=== PATIENT | female | born 1970 | race Caucasian/White ===

== ENCOUNTER 2016-11-26 14:30 | Emergency (ER) | payer BC ==
[2016-11-26] MEDS ORDERED: ASPIRIN 81 MG CHEW PO STA (15:05)
[2016-11-26] MEDS ORDERED: ORPHENADRINE 30 MG/ML 2 ML VIAL IVP STA (15:05)
--- NOTE | 2016-11-26 15:14 | ED ---
Chest Pain HPI - General Chief Complaint: Chest Pain Stated Complaint: Chest Pain/sent by PCP Abn EKG Time Seen by Provider: 11/26/16 14:57 Source: patient, RN notes reviewed Mode of arrival: ambulatory Limitations: no limitations - History of Present Illness Initial Comments: 46-year-old female presents to the emergency room chief complaint of right- sided neck pain. Patient states her last years so she thought that this right arm has been sore since it feels like it needs to be stress. Patient states on off for last 2 weeks. This neck pain that radiates up her neck that feels like she just needs to stretch out patient is discharged from it causes pain. She her shoulder in a way it causes pain. Patient states she had that this morning but it did radiate into the chest when she moves her arm so she was concerned. Patient states that she does smoke. Patient states she went to her doctor that an EKG they were concerned due to female and a smoker. The patient states that she believes is most skeletal but she just wanted to make sure. Patient states there is no nausea no vomiting no shortness of breath with this. Patient states movement makes the pain worse. Patient denies any recent fever, chills, shortness of breath, back pain, abdominal pain, nausea vomiting, numbness or tingling, dysuria or hematuria, constipation or diarrhea, headaches or visual changes, or any other current symptoms. - Related Data Home Medications Medication Instructions Recorded Confirmed Acetaminophen Tab [Tylenol Tab] 1,000 mg PO Q6HR PRN 11/26/16 11/26/16 Albuterol Inhaler [Ventolin Hfa 1 - 2 puff INHALATION RT-Q6H PRN 11/26/16 Inhaler] Beclomethasone Dipropionate [Qvar 2 puff INHALATION RT-BID 11/26/16 11/26/16 80 mcg] Varenicline [Chantix] 0.5 mg PO BID 11/26/16 11/26/16 Allergies Allergy/AdvReac Type Severity Reaction Status Date / Time ciprofloxacin [From Cipro] Allergy Rash/Hives Verified 11/26/16 15:03 Review of Systems ROS Statement: Those systems with pertinent positive or pertinent negative responses have been documented in the HPI. ROS Other: All systems not noted in ROS Statement are negative. EKG Findings - EKG Comments: EKG Findings:: normal sinus rhythm 75 bpm, normal axis, no atopy, no S-T depressions or elevations, Past Medical History Past Medical History: Asthma History of Any Multi-Drug Resistant Organisms: None Reported Past Surgical History: Hernia Repair Additional Past Surgical History / Comment(s): eye surgery Past Psychological History: No Psychological Hx Reported Smoking Status: Current every day smoker Past Alcohol Use History: Occasional Past Drug Use History: None Reported General Exam - General Exam Comments Initial Comments: General: The patient is awake and alert, in no distress, and does not appear acutely ill. Eye: Pupils are equal, round and reactive to light, extra-ocular movements are intact; there is normal conjunctiva bilaterally. No signs of icterus. Ears, nose, mouth and throat: There are moist mucous membranes. Neck: The neck is supple, there is no tenderness to palpation along the trapezius. Patient has pain with leftward bending of the neck. The patient's discomfort. Cardiovascular: There is a regular rate and rhythm. No murmur, rub or gallop is appreciated. Respiratory: Lungs are clear to auscultation, respirations are non-labored, breath sounds are equal. No wheezes, stridor, rales, or rhonchi. Gastrointestinal: Soft, non-distended, non-tender abdomen without masses or organomegaly noted. There is no rebound or guarding present. No CVA tenderness. Bowel sounds are unremarkable. Back: There is no tenderness to palpation in the midline. There is no obvious deformity. No rashes noted. Musculoskeletal: Normal ROM, no tenderness, There is no pedal edema. There is no calf tenderness or swelling. Sensation intact. Pulses equal bilaterally 2+. Neurological: CN II-XII intact, There are no obvious motor or sensory deficits. Coordination appears grossly intact. Speech is normal. Skin: Skin is warm and dry and no rashes or lesions are noted. Psychiatric: Cooperative, appropriate mood & affect, normal judgment. Limitations: no limitations Course Vital Signs 11/26/16 11/26/16 14:38 15:39 Temperature 97.7 F Pulse Rate 71 63 Respiratory 17 20 Rate Blood Pressure 139/78 135/81 O2 Sat by Pulse 100 100 Oximetry Chest Pain MDM - MDM 46-year-old female presents with a chief complaint of right-sided neck pain. This didn't radiate into the chest. Patient was worked up cardiac patient has negative labs and EKG. At this time x-rays are reviewed that does show some degeneration in the neck which makes of the patient's neck pain the arm pain and the radiation down the arm the fact that sometimes has numbness and tingling in her arm on and off for a year or so. At this time the patient was offered admission for continued cardiac workup. We discussed that we cannot rule out if she is having an acute heart attack without additional workup. We discussed that she does have some risk factors. We discussed that if she goes home there is a chance that she could be having an FL and it could lead to and other causes. The patient also was informed of the x-ray. At this time the patient was offered admission and the patient does not want to stay in the hospital. She states that she understands risks of going home but she like to go home. At this time we will respect the patient's wishes. We discussed follow-up in the morning with her doctor for cardiology patient is in agreement. We discussed return parameters to the hospital. She states that she does understand. All questions were answered. She will be discharged. Disposition Clinical Impression: Atypical chest pain, Cervical strain Disposition: HOME SELF-CARE Condition: Stable Instructions: Chest Pain (ED), Cervical Strain (ED) Additional Instructions: Please use medication as discussed. Please follow up with family doctor if symptoms have not improved over the next two days. Please return to the emergency room if your symptoms increase or worsen or for any other concerns. Referrals: Janny Lara MD [Primary Care Provider] - 1-2 days Time of Disposition: 16:41
[2016-11-26 15:27] LABS: Partial Thromboplastin Time 24.6 sec (22.0-30.0); Prothrombin Time 10.1 sec (9.0-12.0)
--- NOTE | 2016-11-26 15:35 | XR ---
EXAMINATION TYPE: XR chest 2V DATE OF EXAM: 11/26/2016 3:31 PM COMPARISON: Chest x-ray November 01, 2015. HISTORY: Chest pain per order. TECHNIQUE: Frontal and lateral views of the chest are obtained. FINDINGS: There is no focal air space opacity, pleural effusion, or pneumothorax seen. The cardiac silhouette size is within normal limits. The osseous structures are intact. IMPRESSION: No acute process. No significant change from prior.
--- NOTE | 2016-11-26 15:37 | XR ---
EXAMINATION TYPE: XR cervical spine comp DATE OF EXAM: 11/26/2016 3:31 PM TECHNIQUE: Frontal, lateral, oblique, and open mouth view of the cervical spine are obtained. HISTORY: Neck pain COMPARISON: None FINDINGS: The cervical spine is visualized in its entirety from C1 thru the top of T1 level, it is s traightened in alignment without evidence of acute fracture or dislocation. The pre-vertebral soft t issue appears within normal limits. The C1-C2 articulation is within normal limits on the open mouth view. Vertebral body heights are maintained. There is mild to moderate disc space narrowing and spu rring at C5-C6 and C6-C7 levels. The oblique images are within normal limits. Overlying soft tissue i s unremarkable. IMPRESSION: Straightening of cervical spine with mild to moderate degenerative changes C5-C6 and C6-C 7 level noted.
[2016-11-26 15:39] LABS: ALT 33 U/L (9-52); AST 24 U/L (14-36); Alkaline Phosphatase 66 U/L (38-126); Anion Gap 13 mmol/L; Blood Urea Nitrogen 6 mg/dL (7-17); Calcium 9.4 mg/dL (8.4-10.2); Carbon Dioxide 24 mmol/L (22-30); Chloride 103 mmol/L (98-107); Glucose 83 mg/dL (74-99); Magnesium 1.9 mg/dL (1.6-2.3); Non-African American GFR(MDRD) >60 (>60 ml/min/1.73 sqM); Potassium 3.9 mmol/L (3.5-5.1); Sodium 140 mmol/L (137-145); Total Bilirubin 0.6 mg/dL (0.2-1.3); Total Protein 7.7 g/dL (6.3-8.2)
[2016-11-26 15:40] LABS: Basophils % (A) 1 %; CH 30.2; CHCM 33.3; Creatine Kinase 63 U/L (30-135); Eosinophils # (A) 0.1 k/uL (0-0.7); Eosinophils % (A) 1 %; HCT 43.7 % (34.0-46.0); HGB 14.6 gm/dL (11.4-16.0); Luc # (Auto) 0.12; Luc % (Auto) 2; Lymphocytes # (A) 2.1 k/uL (1.0-4.8); Lymphocytes % (A) 28 %; MCH 30.4 pg (25.0-35.0); MCHC 33.3 g/dL (31.0-37.0); MCV 91.1 fL (80.0-100.0); Mean Platelet Volume 6.7; Monocytes # (A) 0.4 k/uL (0-1.0); Monocytes % (A) 5 %; Neutrophils % (A) 65 %; RDW 12.6 % (11.5-15.5); WBC 7.7 k/uL (3.8-10.6); WBC (Perox) 7.66
[2016-11-26 15:42] VITALS: PULSE 63; RESP 20
[2016-11-26 15:53] LABS: Creatine Kinase MB <0.2 ng/mL (0.0-2.4); Troponin I <0.012 ng/mL (0.000-0.034)
[2016-11-26 17:04] VITALS: BP 118/69; TEMP 98
== END 2016-11-26 17:16 | disposition home or self-care (01) ==
LOC: EC 14:30
DX: R07.89 Other chest pain (principal); S16.1XXA Strain of muscle, fascia and tendon at neck level, initial encounter; M50.323 Other cervical disc degeneration at C6-C7 level; X58.XXXA Exposure to other specified factors, initial encounter; J45.909 Unspecified asthma, uncomplicated; F17.200 Nicotine dependence, unspecified, uncomplicated; Z79.51 Long term (current) use of inhaled steroids; Z79.899 Other long term (current) drug therapy; Z88.1 Allergy status to other antibiotic agents
CPT/HCPCS: 36415; 93005; 80053; 82550; 82553; 83735; 84484; 85025; 85610; 85730; 71020; 72050; 99285; 96374; J2360

== ENCOUNTER → 2017-02-05 | Outpatient (CLI) | payer BC ==
--- NOTE | 2017-02-05 10:32 | XR ---
EXAMINATION TYPE: XR cervical spine comp DATE OF EXAM: 02/05/2017 10:10 AM CLINICAL HISTORY: pain COMPARISON: NONE TECHNIQUE: Frontal, lateral, oblique, swimmers, and open mouth view of the cervical spine are obtaine d. FINDINGS: The cervical spine is visualized in its entirety from C1 thru the top of T1 level. It is s atisfactory in alignment without evidence of acute fracture or dislocation. The pre-vertebral soft t issue appears within normal limits. Mild degenerative disc space narrowing as well as ventral and keith matthew spondylosis at C5-6 and C6-7. The C1-C2 articulation is unremarkable on the open mouth view. The oblique images are within normal limits. IMPRESSION: No acute fracture or dislocation is seen in the cervical spine.ICD 10 NO FRACTURE, INITI AL EVALUATION
== END | disposition home or self-care (01) ==
LOC: RADXRMAIN 09:41
PROVIDERS: ATTEND Family Medicine
DX: M54.12 Radiculopathy, cervical region (principal)
CPT/HCPCS: 72050

== ENCOUNTER → 2017-02-19 | Outpatient (CLI) | payer BC ==
--- NOTE | 2017-02-19 09:31 | MR ---
EXAMINATION TYPE: MR cervical spine wo con DATE OF EXAM: 02/19/2017 8:12 AM COMPARISON: X-ray 02/05/2017 HISTORY: radiculopathy csp, neck, shoulder and arm pain TECHNIQUE: Multiplanar, multisequence images of the cervical spine were acquired. C2-C3: No evidence for degenerative disc disease. No disc bulge/herniation or protrusion. No Canal stenosis. Foramina are patent bilaterally. C3-C4: Mild degenerative disc disease. There is broad-based central left paracentral disc bulging wit h mild effacement of thecal sac. No spinal cord contact. No foraminal encroachment. C4-C5: Mild degenerative disc disease with left paracentral focal broad-based disc protrusion. Encroa ches upon the anterior margin the spinal cord but no contact. Neural foramina remain patent. C5-C6: Moderate degenerative disc disease with posterior disc protrusion capped by spur with uncovert ebral joint hypertrophy. Mild left foraminal encroachment secondary to greater uncovertebral joint hy pertrophy. C6-C7: Central and left paracentral disc bulging with mild effacement of thecal sac but no spinal cor d contact. Uncovertebral joint hypertrophy noted bilaterally better on the left with mild left forami nal encroachment. C7-T1: No evidence for degenerative disc disease. No disc bulge/herniation or protrusion. No Canal stenosis. Foramina are patent bilaterally. Cervical segments are intact. There is normal alignment. Cervical spinal cord is of normal signal. Craniovertebral junction relationships are within normal limits. IMPRESSION: Multilevel degenerative disc disease with multilevel disc bulging or protrusion as discussed above. E ffacement of thecal sac seen at levels C3-C7
== END | disposition home or self-care (01) ==
LOC: RADMRIMAIN 07:41
PROVIDERS: ATTEND Family Medicine
DX: M50.11 Cervical disc disorder with radiculopathy, high cervical region (principal)
CPT/HCPCS: 72141

== ENCOUNTER → 2017-03-26 | Outpatient (CLI) | payer BC ==
--- NOTE | 2017-03-26 15:24 | US ---
EXAMINATION TYPE: US transvaginal DATE OF EXAM: 03/26/2017 COMPARISON: NONE CLINICAL HISTORY: N93.8 Dysfunctional Uterine Bleeding. DUB, Tubal ligation in 2004 TECHNIQUE: Transvaginal (TV) Date of LMP: 03/13/2017, EXAM MEASUREMENTS: Uterus: 8.8 x 5.5 x 4.7 cm Endometrial Stripe: 0.6 cm Right Ovary: 2.6 x 1.5 x 1.6 cm Left Ovary: 4.0 x 2.9 x 2.5 cm 1. Uterus: Anteverted Heterogenous. Multiple hypoechoic lesions seen, largest measured. Right = 1.4 x 1.4 x 1.1 cm. Mid - 1.4 x 1.0 x 1.1 cm. Left = 1.5 x 1.7 x 1.5 cm 2. Endometrium: wnl 3. Right Ovary: follicle 4. Left Ovary: Cystic lesion - 2.8 x 2.4 x 2.2 cm Spectral, color and waveform doppler imaging shows good arterial and venous flow within the ovaries ; there is no evidence for ovarian torsion. 5. Bilateral Adnexa: Free fluid seen adjacent to right ovary 6. Posterior cul-de-sac: no free fluid Cervix- nabothian cysts, fluid seen in cervical canal IMPRESSION: 1. Multiple suspected leiomyomas. 2. Left ovarian cystic lesion. 3. Small amount of free fluid.
== END | disposition home or self-care (01) ==
LOC: RADUSWWP 14:08
PROVIDERS: ATTEND Obstetrics & Gynecology
DX: N83.202 Unspecified ovarian cyst, left side (principal); R93.8 Abnormal findings on diagnostic imaging of other specified body structures
CPT/HCPCS: 76830

== ENCOUNTER → 2017-05-14 | Outpatient (CLI) | payer BC ==
--- NOTE | 2017-05-14 08:38 | US ---
EXAMINATION TYPE: US thyroid st tissue head/neck DATE OF EXAM: 05/14/2017 COMPARISON: 05/08/2016 CLINICAL HISTORY: E04.1 SINGE THYROID NODULE. GLAND SIZE: Right Lobe: 5.0 x 1.8 x 1.8 cm Overall Parenchyma: homogenous Left Lobe: 3.7 x 1.7 x 1.2 cm Overall Parenchyma: homogeneous Isthmus Thickness: 0.2 cm NODULES RIGHT: # of nodules measured on right: 0 LEFT: # of nodules measured on left: 2 1. 0.6 X 0.4 x 0.5 cm complex cystic nodule at the posterior mid pole with well-defined margins. T his nodule is wider than tall and shows no intranodular vascularity. Prior size: 0.7 x 0.5 x 0.6 cm 2. 0.2cm small hypoechoic nodule at the anterior upper pole with poorly defined margins. This nodul e is wider than tall and shows intranodular vascularity. Prior size: not measured previously ISTHMUS: # of nodules measured in the isthmus: 0 Bilateral neck scanned, no evidence of lymphadenopathy. IMPRESSION: Essentially stable subcentimeter cystic lesions.
== END | disposition home or self-care (01) ==
LOC: RADUSWWP 08:10
PROVIDERS: ATTEND Family Medicine
DX: E04.2 Nontoxic multinodular goiter (principal)
CPT/HCPCS: 76536

== ENCOUNTER → 2017-08-01 | Outpatient (CLI) | payer BC ==
--- NOTE | 2017-08-05 08:02 | MM ---
Reason for exam: screening (asymptomatic). Last mammogram was performed 1 year and 1 month ago. History: Patient has history of other cancer at age 41. Took hormonal contraceptives for 19 years beginning at age 17. Physical Findings: A clinical breast exam by your physician is recommended on an annual basis and results should be correlated with mammographic findings. MG 3D Screening Mammo W/Cad Bilateral CC and MLO view(s) were taken. Prior study comparison: July 10, 2016, bilateral MG 3d screening mammo w/cad. July 05, 2015, bilateral MG screening mammo w CAD. April 11, 2014, bilateral MG screening mammo w CAD. There are scattered fibroglandular densities. No significant changes when compared with prior studies. ASSESSMENT: Negative, BI-RAD 1 RECOMMENDATION: Routine screening mammogram of both breasts in 1 year.
== END ==
LOC: RADMAMWWP 10:50
PROVIDERS: ATTEND Obstetrics & Gynecology
DX: Z12.31 Encounter for screening mammogram for malignant neoplasm of breast (principal)
CPT/HCPCS: 77063; G0202

== ENCOUNTER → 2017-12-17 | Outpatient (CLI) | payer BC ==
--- NOTE | 2017-12-17 11:59 | XR ---
EXAMINATION TYPE: XR knee complete LT DATE OF EXAM: 12/17/2017 CLINICAL HISTORY: pain TECHNIQUE: Three views of the left knee are obtained. COMPARISON: None. FINDINGS: There is no acute fracture/dislocation. The tri-compartment joint spaces appear within no rmal limits. The overlying soft tissue appears unremarkable. IMPRESSION: There is no acute fracture or dislocation ICD 10 NO FRACTURE, INITIAL EVALUATION
--- NOTE | 2017-12-17 12:00 | XR ---
EXAMINATION TYPE: XR Hip Complete LT DATE OF EXAM: 12/17/2017 CLINICAL HISTORY: Pain TECHNIQUE: AP and frogleg views of the left hip are obtained. COMPARISON: None. FINDINGS: There is no acute fracture/dislocation evident in the left hip. The joint space appears within normal limits. The overlying soft tissue appears unremarkable. IMPRESSION: There is no acute fracture or dislocation in the left hip.
== END | disposition home or self-care (01) ==
LOC: RADXRMAIN 11:29
PROVIDERS: ATTEND Family Medicine
DX: M25.552 Pain in left hip (principal); M25.562 Pain in left knee
CPT/HCPCS: 73502

== ENCOUNTER → 2018-01-09 | Outpatient (CLI) | payer BC ==
--- NOTE | 2018-01-09 11:03 | MR ---
EXAMINATION TYPE: MR hip LT wo con DATE OF EXAM: 01/09/2018 COMPARISON: NONE HISTORY: Other specified joint disorders, left hip Standard multiplanar, multisequence MRI departmental protocol Multiplanar, multisequence images of the left hip were acquired. FINDINGS: There is edema along the greater trochanter within the soft tissues as well as within the adjacent os seous structures. Nonspecific marrow edema often associated with trochanteric bursitis. Trace amount of fluid is seen within the joint space. There is marrow edema within the lateral margin of the acetabulum which may be reactive. Very mild hypertrophic change of the lateral margin of the acetabulum. Labrum is grossly intact. Joint space demonstrates mild concentric narrowing but no evidence of erosive change. Within the uterus there is a 1.6 cm area of low signal on the T2 axial image likely related to uterin e fibroid. Multiple additional less than 1 cm areas are seen within the myometrium suggesting fibroid . No free fluid within the pelvis. Fluid-filled structure with posterior to the uterus may be related to an adnexal cyst. IMPRESSION: 1. Correlate for trochanteric bursitis with edema in the lateral margin of the greater trochanter and adjacent soft tissues. Increased signal at the gluteus medius insertion is associated with tendinosi s. No full-thickness tear or tendinous retraction. 2. Multiple uterine fibroids are suspected and have been previously reported by ultrasound dated 2016.
== END ==
LOC: RADMRIMAIN 09:06
PROVIDERS: ATTEND Family Medicine
DX: M67.854 Other specified disorders of tendon, left hip (principal)

== ENCOUNTER → 2018-06-05 | Outpatient (CLI) | payer BC ==
--- NOTE | 2018-06-05 11:38 | FL ---
EXAMINATION TYPE: FL barium swallow w video DATE OF EXAM: 06/05/2018 MODIFIED SWALLOW / DEGLUTITION STUDY CLINICAL HISTORY: Dysphagia. Feels solid foods getting stuck. TECHNIQUE: Deglutition study is performed utilizing thin liquid barium, honey and nectar thick liqui d barium, barium thick applesauce, and barium coated cracker. A total of 56 seconds of fluoroscopic t bobby was utilized during procedure. Approximately 8 cine sequences are acquired. 0 spot images are eladia ed to PACS. COMPARISON: None. FINDINGS: The oral and pharyngeal phases show satisfactory initiation and propagation with all modali ties tested. Normal mastication is seen with solid modalities tested. There is no evidence of penet ration or aspiration with any modality tested. No significant pharyngeal residue was appreciated. IMPRESSION: Normal deglutition study. Please refer to speech therapist notes for further details if necessary.
== END | disposition home or self-care (01) ==
LOC: RADFLMAIN 10:51
PROVIDERS: ATTEND Family Medicine
DX: R13.10 Dysphagia, unspecified (principal)
CPT/HCPCS: 74230

== ENCOUNTER → 2018-07-17 | Outpatient (CLI) | payer BC ==
--- NOTE | 2018-07-19 19:10 | CT ---
EXAMINATION TYPE: CT soft tissue neck w con DATE OF EXAM: 07/17/2018 COMPARISON: None HISTORY: Dysphagia. CT DLP: 728 mGycm CONTRAST: Patient injected with 100ml mL of Isovue M300. TECHNIQUE: Axial images at 3 mm thick sections. Reconstructed images in the coronal plane and sagitt al plane are reviewed. FINDINGS: Limited CT sections are obtained the lung apices. The lung apices appear clear. CT neck: The torus tubarius and fossa of Rosenmuller are normal. Hose Tester spaces are normal. Ther e is made a retention cyst within the left maxillary sinus. Parotid glands appear normal and symmetrical. Submandibular glands, are normal. Parapharyngeal spac es are normal. No suspicious adenopathy is evident. Posterior left tongue has more fullness than on the right. This is narrowing the upper left hypophary nx. Direct visualization is recommended. This could be related to tongue positioning. Asymmetry raise s the possibility of abnormality at this level. Tongue density appears homogenous as visualized. Vocal cord level appear symmetrical. Thyroid as visualized is normal. There is a slight kyphosis in lower cervical spine. Degenerative disc changes are noted. IMPRESSIONS: 1. There is fullness within the posterior superior left tongue causing narrowing of the hypopharynx. Underlying mass is not excluded. Direct visualization of the posterior tongue is recommended.
== END | disposition home or self-care (01) ==
LOC: RADCTMAIN 18:17
PROVIDERS: ATTEND Otolaryngology
DX: J39.2 Other diseases of pharynx (principal)
CPT/HCPCS: 70491; Q9967

== ENCOUNTER → 2018-08-05 | Outpatient (CLI) | payer BC ==
--- NOTE | 2018-08-07 11:26 | MM ---
Reason for exam: screening (asymptomatic). Last mammogram was performed 1 year ago. History: Patient has history of other cancer at age 41. Took hormonal contraceptives for 19 years beginning at age 17. Physical Findings: A clinical breast exam by your physician is recommended on an annual basis and results should be correlated with mammographic findings. MG 3D Screening Mammo W/Cad Bilateral CC and MLO view(s) were taken. Prior study comparison: August 01, 2017, bilateral MG 3d screening mammo w/cad. July 10, 2016, bilateral MG 3d screening mammo w/cad. There are scattered fibroglandular densities. Asymmetry superior right breast is unchanged. No significant changes when compared with prior studies. ASSESSMENT: Negative, BI-RAD 1 RECOMMENDATION: Routine screening mammogram of both breasts in 1 year.
== END | disposition home or self-care (01) ==
LOC: RADMAMWWP 16:31
PROVIDERS: ATTEND Obstetrics & Gynecology
DX: Z12.31 Encounter for screening mammogram for malignant neoplasm of breast (principal)
CPT/HCPCS: 77063; 77067

== ENCOUNTER → 2019-03-26 | Outpatient (CLI) | payer BC ==
--- NOTE | 2019-03-26 08:49 | US ---
EXAMINATION TYPE: US thyroid st tissue head/neck DATE OF EXAM: 03/26/2019 COMPARISON: US 05/14/2017 CLINICAL HISTORY: E04.9 Nontoxic goiter unspecified. GLAND SIZE: Right Lobe: 5.1 x 1.4 x 1.4 cm Overall Parenchyma: homogenous Left Lobe: 4.1 x 0.9 x 1.4 cm Overall Parenchyma: homogeneous Isthmus Thickness: 0.3 cm NODULES RIGHT: # of nodules measured on right: 1 1. 0.4 X 0.2 x 0.4 cm hypoechoic cystic nodule at the upper pole with well-defined margins; . This nodule is wider than tall and shows no intranodular vascularity. Prior size: No previous LEFT: # of nodules measured on left: 2 1. 0.4 X 0.3 x 0.4 cm hypoechoic mixed nodule at the upper pole with well-defined margins; . This nodule is wider than tall and shows no intranodular vascularity. Prior size: No previous 2. 0.3 X 0.3 x 0.3 cm hypoechoic mixed nodule at the upper pole with well-defined margins; . This n odule is wider than tall and shows no intranodular vascularity. Prior size: 0.2 cm ISTHMUS: # of nodules measured in the isthmus: 0 Bilateral neck scanned, no evidence of lymphadenopathy. IMPRESSION: Subcentimeter thyroid nodules measure up to 4 mm. Surveillance is recommended as these are too small for fine-needle aspiration.
== END ==
LOC: RADUSWWP 08:14
PROVIDERS: ATTEND Family Medicine
DX: E04.2 Nontoxic multinodular goiter (principal)
CPT/HCPCS: 76536

== ENCOUNTER → 2019-09-08 | Outpatient (CLI) | payer BC ==
--- NOTE | 2019-09-09 11:00 | MM ---
Reason for exam: screening (asymptomatic). Last mammogram was performed 1 year and 1 month ago. History: Patient has history of other cancer at age 38. Took hormonal contraceptives for 19 years beginning at age 17. Physical Findings: A clinical breast exam by your physician is recommended on an annual basis and results should be correlated with mammographic findings. MG 3D Screening Mammo W/Cad Bilateral CC and MLO view(s) were taken. Prior study comparison: August 05, 2018, bilateral MG 3d screening mammo w/cad. August 01, 2017, bilateral MG 3d screening mammo w/cad. There are scattered fibroglandular densities. There is no discrete abnormality. No significant changes when compared with prior studies. ASSESSMENT: Negative, BI-RAD 1 RECOMMENDATION: Routine screening mammogram of both breasts in 1 year.
== END | disposition home or self-care (01) ==
LOC: RADMAMWWP 09:14
PROVIDERS: ATTEND Obstetrics & Gynecology
DX: Z12.31 Encounter for screening mammogram for malignant neoplasm of breast (principal)
CPT/HCPCS: 77063; 77067

== ENCOUNTER → 2020-05-31 | Outpatient (CLI) | payer BC ==
--- NOTE | 2020-05-31 13:44 | US ---
EXAMINATION TYPE: US thyroid st tissue head/neck DATE OF EXAM: 05/31/2020 COMPARISON: 03/26/2019 CLINICAL HISTORY: 49-year-old female E04.9 NONTOXIC GOITER. Thyroid nodules TECHNIQUE: Multiple sonographic images of the thyroid gland are obtained. FINDINGS: GLAND SIZE: Right Lobe: 4.3 x 1.8 x 1.9 cm Overall Parenchyma: homogenous Left Lobe: 4.0 x 1.4 x 1.4 cm Overall Parenchyma: homogeneous Isthmus Thickness: 0.2 cm NODULES RIGHT: # of nodules measured on right: 1 1. 0.5 X 0.3 x 0.4 cm hypoechoic cystic nodule at the lateral mid pole with well-defined margins. T his nodule is wider than tall and shows no intranodular vascularity. Prior size: 0.4 x 0.2 x 0.4 cm LEFT: # of nodules measured on left: 1 1. Nodule seen on previous exam not seen on today's study 2. 0.4 X 0.3 x 0.4 cm hypoechoic mixed nodule at the upper pole with well-defined margins. This nod ule is wider than tall and shows no intranodular vascularity. Prior size: 0.3 x 0.3 x 0.3 cm ISTHMUS: # of nodules measured in the isthmus: 0 Bilateral neck scanned, no evidence of lymphadenopathy. IMPRESSION: 5 mm cyst on the right and 4 mm mixed nodule on the left remain relatively unchanged compared to 2018. Additional follow-up as indicated. A previously seen 4 mm hypoechoic nodule on the left is no l onger identified.
== END | disposition home or self-care (01) ==
LOC: RADUSWWP 11:54
PROVIDERS: ATTEND Family Medicine
DX: E04.2 Nontoxic multinodular goiter (principal)
CPT/HCPCS: 76536

== ENCOUNTER 2020-09-01 06:06 | Day surgery (SDC) | payer BC ==
[2020-08-30 12:11] VITALS: BMI 27.1
[~2020-09-01 06:06] MED LIST: LACTATED RINGERS 1,000 ML IV SCH; LIDOCAINE 1% (10MG/ML) FOR IV START INTRADERMA PRN
[2020-09-01 06:56] VITALS: TEMP 97.9
[2020-09-01] MEDS ORDERED: LIDOCAINE 1% (10MG/ML) FOR IV START INTRADERMA ONE (07:00)
[2020-09-01] MEDS ORDERED: PROPOFOL 10 MG/ML 20 ML VIAL IV ONE (07:12)
[2020-09-01 07:31] VITALS: RESP 16
--- NOTE | 2020-09-01 07:31 | P.PCN ---
Date of Procedure: 09/01/20 Procedure(s) Performed: BRIEF HISTORY: Patient is a 49-year-old pleasant female scheduled for an elective colonoscopy as a part of screening for colorectal neoplasia. PROCEDURE PERFORMED: Colonoscopy snare polypectomy. PREOPERATIVE DIAGNOSIS: Screening for colon cancer. IV sedation per Anesthesia. PROCEDURE: After informed consent was obtained, the patient, was brought into the endoscopy unit. IV sedation was administered by Anesthesia under continuous monitoring. Digital rectal examination was normal. Initially the Olympus CF-160 flexible video colonoscope was then inserted in the rectum, gradually advanced into the cecum without any difficulty. Careful examination was performed as the scope was gradually being withdrawn. Ileocecal valve and the appendiceal orifice were visualized and appeared normal. Prep was excellent. The base of the cecum there was a flat 7-8 mm cecal polyp that was removed by snare polypectomy. Mucosa of the cecum, ascending colon, transverse colon, descending colon, sigmoid colon, and rectum appeared normal. Retroflexion was performed in the rectum and no lesions were seen. The patient tolerated the procedure well. IMPRESSION: 7-8 mm flat cecal polyp status post polypectomy Rest of the colon appeared normal. RECOMMENDATIONS: Findings of this examination were discussed with the patient as well as a family. She was advised to follow with the biopsy results. If the biopsy reveals adenoma she can have a repeat colonoscopy in 5 years.
[2020-09-01 07:46] VITALS: BP 112/65; PULSE 61
== END 2020-09-01 08:21 | disposition home or self-care (01) ==
LOC: ORWHC2ENDO 06:06
PROVIDERS: ATTEND Internal Medicine Gastroenterology
DX: Z12.11 Encounter for screening for malignant neoplasm of colon (principal); K63.5 Polyp of colon; Z87.891 Personal history of nicotine dependence; K20.0 Eosinophilic esophagitis; Z88.1 Allergy status to other antibiotic agents
CPT/HCPCS: 81025; 88305; 45385; J2704

== ENCOUNTER 2021-02-03 17:36 | Emergency (ER) | payer BC, OTHER ==
[2021-02-03 18:03] VITALS: BP 145/79; PULSE 75; RESP 18; TEMP 97.7
[2021-02-03] MEDS ORDERED: AMPICILLIN-SULBACTAM 3 GM in SODIUM CHLORIDE 0.9% 100 ML IVPB STA (18:42)
--- NOTE | 2021-02-03 18:43 | ED ---
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 Patient was bit by a cat while working yesterday. States that she did take two doses of augmentin yesterday. The redness and spread up her hand today so she presented here for further evalua tion. Patient states that there have been animal bite reports filed with the county through the veternary clinic. Patient states the cat was not vaccinated against rabies. Plan is to quarantine the cat. She reports that her tetanus was recently updated. She has had rabies vaccination in the past, titers 15 years ago were still reactive. She denies any fever, chills, vomiting, or significant pain with this. - Related Data Home Medications Medication Instructions Recorded Confirmed No Known Home Medications 08/30/20 08/30/20 Allergies Allergy/AdvReac Type Severity Reaction Status Date / Time ciprofloxacin [From Cipro] Allergy Rash/Hives Verified 02/03/21 18:03 Review of Systems ROS Statement: Those systems with pertinent positive or pertinent negative responses have been documented in the HPI. ROS Other: All systems not noted in ROS Statement are negative. Past Medical History Past Medical History: Asthma History of Any Multi-Drug Resistant Organisms: None Reported Past Surgical History: Hernia Repair Additional Past Surgical History / Comment(s): eye surgery Past Psychological History: No Psychological Hx Reported Smoking Status: Never smoker Past Alcohol Use History: Occasional Past Drug Use History: None Reported General Exam Limitations: no limitations General appearance: alert, in no apparent distress, other (Physical well- developed, well-nourished adult female patient in no acute distress. Vital signs upon presentation are temperature 97.7F, pulse 75, respirations 18, blood pressure 145/79, pulse ox 100% on room air.) Eye exam: Present: normal appearance, PERRL, EOMI. Absent: scleral icterus, conjunctival injection, periorbital swelling ENT exam: Present: normal exam, normal oropharynx, mucous membranes moist Respiratory exam: Present: normal lung sounds bilaterally. Absent: respiratory distress, wheezes, rales, rhonchi, stridor Cardiovascular Exam: Present: regular rate, normal rhythm, normal heart sounds. Absent: systolic murmur, diastolic murmur, rubs, gallop, clicks GI/Abdominal exam: Present: soft, normal bowel sounds. Absent: distended, tenderness, guarding, rebound, rigid Extremities exam: Present: full ROM, normal capillary refill, other (There is erythema and a mild soft tissue swelling noted to the left dorsal hand. There is puncture wounds and scratches noted as well. Skin is otherwise pink, warm, dry. Cap refill less than 3 seconds. Radial pulses 2+.). Absent: tenderness, pedal edema, joint swelling, calf tenderness Neurological exam: Present: alert, oriented X3, CN II-XII intact Psychiatric exam: Present: normal affect, normal mood Skin exam: Present: warm, dry, intact, normal color. Absent: rash Course Vital Signs 02/03/21 17:56 Temperature 97.7 F Pulse Rate 75 Respiratory 18 Rate Blood Pressure 145/79 O2 Sat by Pulse 100 Oximetry Medical Decision Making - Medical Decision Making 50-year-old female patient presents to the emergency department today for evaluation of Bite to the left hand. Physical examination did reveal soft tissue swelling and erythema over the dorsal aspect of the hand. No significant swelling. She reports no significant pain. She is afebrile. We did discuss the rabies prophylaxis, she declined stating this today due to 2 recent vaccinations including tetanus and covid. They do have contact with the cat's owners and it will be monitored. She understands if the cat develops symptoms of rabies she should present here right away for prophylactic treatment. We did give a dose of IV unasyn. She will be discharged to continue the augmentin. Return parameters were discussed in detail. She is instructed HER primary care physician for recheck in 1-2 days. She verbalizes understanding and agrees with this plan. My attending is Dr. Cardenas. Disposition Clinical Impression: Cat bite, Cellulitis Disposition: HOME SELF-CARE Condition: Good Instructions (If sedation given, give patient instructions): Animal Bite (ED), Cellulitis (ED) Additional Instructions: If Develops symptoms of rabies return immediately for postexposure prophylaxis protocol. Continue taking home Augmentin. Return immediately if you develop fever or vomiting. Follow-up with your primary care physician for recheck in 1- 2 days. Return for any other new, worsening, or concerning symptoms. Is patient prescribed a controlled substance at d/c from ED?: No Referrals: Janny Lara MD [Primary Care Provider] - 1-2 days Time of Disposition: 18:43
== END 2021-02-03 19:55 | disposition home or self-care (01) ==
LOC: EC 17:36
DX: S61.452A Open bite of left hand, initial encounter (principal); J45.909 Unspecified asthma, uncomplicated; W55.01XA Bitten by cat, initial encounter
CPT/HCPCS: 99283; 96365; J0295

== ENCOUNTER → 2021-02-21 | Outpatient (CLI) | payer BC ==
--- NOTE | 2021-02-22 13:19 | MM ---
Reason for exam: screening (asymptomatic). Last mammogram was performed 1 year and 5 months ago. History: Patient has history of other cancer at age 38. Took hormonal contraceptives for 19 years beginning at age 17. Physical Findings: A clinical breast exam by your physician is recommended on an annual basis and results should be correlated with mammographic findings. MG 3D Screening Mammo W/Cad Bilateral CC and MLO view(s) were taken. Prior study comparison: September 08, 2019, bilateral MG 3d screening mammo w/cad. August 05, 2018, bilateral MG 3d screening mammo w/cad. The breast tissue is heterogeneously dense. This may lower the sensitivity of mammography. Finding: There are indeterminate grouped/clustered calcifications in the upper outer quadrant, posterior position of the right breast on MLO 14/46. There is no discrete abnormality. New finding and increase in number of calcifications since September 08, 2019 and August 05, 2018. ASSESSMENT: Incomplete: need additional imaging evaluation, BI-RAD 0 RECOMMENDATION: Special view mammogram of the right breast. [facility] will attempt to contact patient to return for supplemental views.
== END | disposition home or self-care (01) ==
LOC: RADMAMWWP 08:05
PROVIDERS: ATTEND Obstetrics & Gynecology
DX: Z12.31 Encounter for screening mammogram for malignant neoplasm of breast (principal)
CPT/HCPCS: 77063; 77067

== ENCOUNTER → 2021-02-26 | Outpatient (CLI) | payer BC ==
--- NOTE | 2021-02-26 10:38 | MM ---
Reason for exam: additional evaluation requested from abnormal screening. Last mammogram was performed less than 1 month ago. History: Patient has history of other cancer at age 38. Took hormonal contraceptives for 19 years beginning at age 17. Physical Findings: Nurse did not find any significant physical abnormalities on exam. MG 3D Work Up W/Cad RT Spot compression CC, spot compression ML, and ML view(s) were taken of the right breast. Prior study comparison: February 21, 2021, bilateral MG 3d screening mammo w/cad. September 08, 2019, bilateral MG 3d screening mammo w/cad. There are scattered fibroglandular densities. Finding: There are indeterminate grouped/clustered calcifications in the upper outer quadrant of the right breast. These results were verbally communicated with the patient and result sheet given to the patient on 02/26/21. ASSESSMENT: Suspicious, BI-RAD 4 RECOMMENDATION: Stereotactic core biopsy of the right breast. Called Dr. Gibson's office with mammographic findings and has scheduled an appointment for the patient for 04/19/21 at 11:[address] Menendez. Biopsy scheduled for 03/26/21 at 10:00. PRELIMINARY REPORT CALLED AND FAXED TO DR. MENENDEZ ON 02/26/21.
== END | disposition home or self-care (01) ==
LOC: RADMAMWWP 08:38
PROVIDERS: ATTEND Obstetrics & Gynecology
DX: R92.1 Mammographic calcification found on diagnostic imaging of breast (principal)
CPT/HCPCS: 77061; 77065

== ENCOUNTER → 2021-03-26 | Day surgery (SDC) | payer BC ==
[2021-03-26 09:27] VITALS: RESP 16
[2021-03-26 11:14] VITALS: BP 115/69; PULSE 70; TEMP 98
--- NOTE | 2021-03-26 16:33 | MM ---
EXAMINATION TYPE: MG stereo VAD BX RT DATE OF EXAM: 03/26/2021 COMPARISON: 02/21/2021, 02/26/2021 CLINICAL HISTORY: 50-year-old female R92.8, abnormal mammogram TECHNIQUE: Stereotactic guided core biopsy of the right breast. FINDINGS: The procedure of stereotactic guided core biopsy was explained to the patient. Benefits, a lternatives, and risks were discussed. An informed consent was then obtained. The 10:00 posterior right breast microcalcifications were identified. The shortness pathway for biopsy was a lateral approach. However, we were unable to bring in breast t issue to adequately visualize the calcifications utilizing this approach. A CC from above approach myers d to be utilized. I performed the localization followed by the remainder of the procedure. A vacuum a ssisted biopsy gun was used to obtain 9 core samples. The patient tolerated the procedure well without any immediate complication. The patient was kept in the radiology department for short stay after the procedure and then discharged home in stable condi tion. Targeted calcifications are identified in specimen mammogram. Post biopsy mammogram shows possible s light 1 cm posterior migration secondary to prominent anesthetic or mild hemorrhage. Residual microcalcifications are not clearly identified. IMPRESSION: SUCCESSFUL, UNCOMPLICATED STEREOTACTIC GUIDED CORE BIOPSY OF GROUPED POSTERIOR 10:00 RIGHT BREAST CALLIE ROCALCIFICATIONS. THERE MAY BE SLIGHT 1 CM POSTERIOR CLIP MIGRATION. FULL PATHOLOGY RESULTS TO FOLLOW .
== END ==
LOC: RADMAMWWP 08:56
PROVIDERS: ATTEND Surgery
DX: D05.11 Intraductal carcinoma in situ of right breast (principal); Z17.0 Estrogen receptor positive status [ER+]; Z88.1 Allergy status to other antibiotic agents; R92.8 Other abnormal and inconclusive findings on diagnostic imaging of breast; R92.0 Mammographic microcalcification found on diagnostic imaging of breast
CPT/HCPCS: 88305; 88342; 88341; 19081; A4648; J2001

== ENCOUNTER → 2021-04-04 | Outpatient (CLI) | payer BC ==
--- NOTE | 2021-04-04 16:54 | XR ---
EXAMINATION TYPE: XR chest 2V DATE OF EXAM: 04/04/2021 COMPARISON: Prior chest x-ray November 26, 2016. HISTORY: Breast cancer. TECHNIQUE: Frontal and lateral views of the chest are obtained. FINDINGS: There is no focal air space opacity, pleural effusion, or pneumothorax seen. The cardiac silhouette size remains within normal limits. The osseous structures are intact. Overlying Breast s hadows redemonstrated. IMPRESSION: No acute cardiopulmonary process. No significant change from prior.
== END | disposition home or self-care (01) ==
LOC: RADXRMAIN 16:11
PROVIDERS: ATTEND Family Medicine
DX: C50.919 Malignant neoplasm of unspecified site of unspecified female breast (principal)
CPT/HCPCS: 71046

== ENCOUNTER → 2021-09-05 | Outpatient (CLI) | payer BC ==
--- NOTE | 2021-09-05 11:54 | US ---
EXAMINATION TYPE: US thyroid st tissue head/neck DATE OF EXAM: 09/05/2021 COMPARISON: 05/31/2020 CLINICAL HISTORY: 50-year-old female E04.9 Nontoxic goiter, unspecified. TECHNIQUE: Multiple sonographic images of the thyroid gland are obtained. FINDINGS: GLAND SIZE: Right Lobe: 4.35 x 2.04 x 1.46 cm Overall Parenchyma: homogenous Left Lobe: 3.73 x 1.63 x 1.22 cm Overall Parenchyma: homogeneous Isthmus Thickness: 0.18 cm NODULES RIGHT: # of nodules measured on right: 0 Prior cystic area not seen LEFT: # of nodules measured on left: 2 1. 0.3 X 0.3 x 0.3 cm, upper mid, solid or almost completely solid, hypoechoic nodule, which is wi chaim than tall, with lobulated or irregular margins, without echogenic foci. Prior size: 0.4 x 0.4 x 0.3 cm 2. 0.4 X 0.3 x 0.1 cm, upper mid, solid or almost completely solid, hypoechoic nodule, which is wi chaim than tall, with lobulated or irregular margins, without echogenic foci. ISTHMUS: # of nodules measured in the isthmus: 0 Bilateral neck scanned, no evidence of lymphadenopathy. IMPRESSION: There are two small solid nodules within the left lower lobe measuring 3 mm and 4 mm. The 3 mm nodule is minimally smaller (compared to 4 mm, previously). The 4 mm nodule was not well seen previously. F ollow-up can be considered.
== END ==
LOC: RADUSWWP 08:51
PROVIDERS: ATTEND Family Medicine
DX: E04.2 Nontoxic multinodular goiter (principal)
CPT/HCPCS: 76536

== ENCOUNTER → 2022-08-21 | Outpatient (CLI) | payer BC ==
--- NOTE | 2022-08-21 20:19 | CTL ---
EXAMINATION TYPE: CT Low Dose Lung DATE OF EXAM: 08/21/2022 4:53 PM CLINICAL INDICATION:Female, 51 years old with history of Z87.891 personal hx; current smoker. on and off x 25 years 1/2 pack a day , history of tobacco use. COMPARISON: None TECHNIQUE: Multiple axial non-contrast scans were obtained from approximately the lung apices through the upper abdomen ( 2 mm slice thickness, 2mm reconstruction). Coronal and sagittal reformatted imag es were obtained. Low dose technique was utilized. CT DLP: 115.20 mGycm, Automated exposure control for dose reduction was used. CT Contrast: Contrast used: None Oral contrast used: None FINDINGS: ======== Lack of intravenous contrast and low dose technique limits the evaluation of the vascular and soft ti ssue structures. LUNGS: Mild emphysema changes are seen in the lung apices. Nodules: RUL: None. RML: None. RLL: None. SAULO: None. LLL: None. No evidence of emphysema or pulmonary fibrosis. AIRWAYS: Unremarkable. LOWER NECK: Grossly unremarkable. LYMPH NODES: No grossly enlarged lymph nodes in the thorax. MEDIASTINUM?AND DULCE: Grossly unremarkable. HEART AND VASCULAR STRUCTURES: Grossly unremarkable. PLEURA & PERICARDIUM: Grossly unremarkable. CHEST WALL: Bilateral breast implants are present. Breast implants appear intact. UPPER ABDOMEN: Grossly unremarkable. BONES: Unremarkable. IMPRESSION: 1. No clinically significant pulmonary nodules. 2. Mild emphysema 3. Intact breast implants. CT LUNG RAD AND CT CHEST RECOMMENDATION: Lung-Rad 1 Negative: Continue annual screening with LDCT in 12 months. S Modifier (other clinically significant findings): None Recommend smoking cessation (if current smoker), or continuation of smoking cessation (if prior smoke r). Annual screening for lung cancer with low-dose computed tomography is recommended in adults ages 55 to 77 years who have a 30 pack-year smoking history and currently smoke or have quit within the pa st 15 years. Screening should be discontinued once a person has not smoked for 15 years or develops a health problem that substantially limits life expectancy or the ability or willingness to have curat alon lung surgery.
== END | disposition home or self-care (01) ==
LOC: RADCTMAIN 16:25
PROVIDERS: ATTEND Family Medicine
DX: Z12.2 Encounter for screening for malignant neoplasm of respiratory organs (principal); J43.9 Emphysema, unspecified; Z87.891 Personal history of nicotine dependence; Z98.82 Breast implant status
CPT/HCPCS: 71271

== ENCOUNTER → 2023-04-16 | Outpatient (CLI) | payer BC ==
--- NOTE | 2023-04-16 14:12 | US ---
EXAMINATION TYPE: US thyroid st tissue head/neck DATE OF EXAM: 04/16/2023 COMPARISON: 05/31/20 CLINICAL INDICATION: Female, 52 years old with history of E04.9 NONTOXIC GOITER; follow up on known l eft nodule GLAND SIZE: Right Lobe: 4.4 x 1.9 x 1.8 cm Overall Parenchyma: homogenous Left Lobe: 4.3 x 1.7 x 1.2 cm Overall Parenchyma: homogeneous Isthmus Thickness: 0.2 cm NODULES RIGHT: # of nodules measured on right: 0 LEFT: # of nodules measured on left: 1 1. 0.5 X 0.4 x 0.6 cm, Prior size: 0.4 x 0.4 x 0.3 cm TIRADS Score: 0 TIRADS Category 1: Benign Composition: Cystic or almost completely cystic (0 points). Recommendation: No FNA ISTHMUS: # of nodules measured in the isthmus: 0 Bilateral neck scanned, no evidence of lymphadenopathy. IMPRESSION: No suspicious thyroid nodules.
== END | disposition home or self-care (01) ==
LOC: RADUSWWP 13:29
PROVIDERS: ATTEND Family Medicine
DX: E04.9 Nontoxic goiter, unspecified (principal)
CPT/HCPCS: 76536